=== PATIENT | female | born 1965 | race Caucasian/White ===

== ENCOUNTER 2021-11-15 00:47 | Emergency (ER) | payer MEDICAID ==
[~2021-11-15] VITALS: Ht 162.6 cm; Wt 80.0 kg
[2021-11-15 01:44] LABS: CHLORIDE 110 mEq/L (98-107)
[2021-11-15 01:53] LABS: BASOPHILS % 0.5 % (0.0-2.0); EOSINOPHILS % 4.2 % (0.0-5.0); HEMATOCRIT. 37.4 % (36.0-48.0); HEMOGLOBIN. 12.4 g/dL (12.0-16.0); LYMPHOCYTES % 33.1 % (20.0-50.0); MEAN CORPUSCULAR HEMOGLOBIN 29.2 pg (28.0-32.0); MEAN CORPUSCULAR VOLUME 87.8 fL (81.0-99.0); MEAN PLATELET VOLUME 8.1 fl (7.4-10.4); MONOCYTES % 4.2 % (2.0-8.0); PLATELET 340 x1000/uL (130-400); RED BLOOD CELL COUNT 4.26 mill/uL (4.2-5.4); RED CELL DISTRIBUTION WIDTH 13.8 % (11.6-14.6)
[2021-11-15] MEDS ORDERED: SODIUM CHLORIDE 0.9% 1,000 ML IV ONE (02:00)
[2021-11-15] MEDS ORDERED: POTASSIUM CHLORIDE 20MEQ TABLET SR PO NR (04:00)
[2021-11-15 07:54] VITALS: BP 106/82
== END 2021-11-15 08:11 | disposition home or self-care (01) ==
LOC: ER 00:47
DX: T51.0X1A Toxic effect of ethanol, accidental (unintentional), initial encounter (principal); F10.129 Alcohol abuse with intoxication, unspecified; E87.6 Hypokalemia; R53.83 Other fatigue; Y90.6 Blood alcohol level of 120-199 mg/100 ml; Y92.018 Other place in single-family (private) house as the place of occurrence of the external cause
CPT/HCPCS: 36415; 71045; 80053; 80320; 84484; 85025; 93005; 96360; 99285; J7030; G0480